=== PATIENT | female | born 1990 | race American Indian/Alaskan Native ===

== ENCOUNTER 2020-07-15 12:03 | Observation (INO) | payer MEDICAID ==
[2020-07-15] MEDS ORDERED: ONDANSETRON 4 MG/2 ML INJ IV PRN (13:40)
[2020-07-15] MEDS ORDERED: ACETAMINOPHEN 325 MG TAB PO PRN (13:40)
[2020-07-15] MEDS ORDERED: DOCUSATE SODIUM 100 MG CAP PO PRN (13:40)
[2020-07-15] MEDS ORDERED: DEXTROSE 50% IN WATER (25GM) 50 ML SYRINGE IV PRN (13:47)
[2020-07-15] MEDS ORDERED: LACTATED RINGERS 1,000 ML IV SCH (14:00)
[2020-07-15 15:28] LABS: Eosinophils # (Auto) 0.1 K/mm3 (0.0-0.4); Eosinophils % (Auto) 0.8 % (0.0-4.3); Hematocrit 33.5 % (30.3-42.9); Hemoglobin 10.8 gm/dl (10.1-14.3); Lymphocytes # (Auto) 2.1 K/mm3 (1.2-5.4); Lymphocytes % (Auto) 22.9 % (13.4-35.0); Mean Corpuscular HGB Conc 32 % (30-34); Mean Corpuscular Volume 80 fl (79-97); Monocytes # (Auto) 0.8 K/mm3 (0.0-0.8); Monocytes % (Auto) 8.9 % (0.0-7.3); Platelet Count 252 K/mm3 (140-440); Red Blood Count 4.19 M/mm3 (3.65-5.03); Red Cell Distribution Width 15.5 % (13.2-15.2)
[2020-07-15 15:35] LABS: Alanine Aminotransferase 69 units/L (7-56); Albumin 2.9 g/dL (3.9-5); Blood Urea Nitrogen 10 mg/dL (7-17); Calcium 9.2 mg/dL (8.4-10.2); Hemolysis Index 3; Uric Acid 3.8 mg/dL (3.5-7.6)
[2020-07-15 15:37] LABS: BUN/Creatinine Ratio 20
[2020-07-15] MEDS: BETAMET ACET/BETAMET NA PH 6 MG/ML INJ 5 ML MDV IM SCH (15:52)
[2020-07-15] MEDS: PRENATAL VIT27-FE FUMARATE-FOLIC ACID VIT TAB PO SCH (15:52)
--- NOTE | 2020-07-15 15:59 | Ultrasound Report ---
Biophysical profile Ultrasound HISTORY: elevated BP. TECHNIQUE: Grayscale and color imaging performed. COMPARISON: None FINDINGS: Fetus received a score of 2 out of 2 for breathing, movement, posture/tone, and MARC. Total score was 8 out of 8. Heart rate was 111 bpm. Cephalic presentation IMPRESSION: Normal biophysical profile. Signer Name: Kyler Navas MD Signed: 07/15/2020 3:55 PM Workstation Name: [id number]
[2020-07-15] MEDS ORDERED: INSULIN LISPRO 100 UNIT/ML VIAL 3 mL SUB-Q SCH (16:30)
--- NOTE | 2020-07-15 16:33 | History and Physical Report ---
History of Present Illness Date of examination: 07/15/20 Date of admission: 07/15/20 13:40 Chief complaint: Sent from [facility] for elevated BP History of present illness: Pt is a 30 yo primip at 36w1d EGA who presents for labs and monitoring ordered by [facility] due to elevated BP. She reports positive movement and denies LOF, vaginal bleeding, contractions, headache, scotomata, or face/hand swelling. She has had one visit with [facility], on 07/05. Her course has been complicated by gestational diabetes, insulin-controlled. Past History Past Medical History: no pertinent history - Obstetrical History Expected Date of Delivery: 08/11/20 Actual Gestation: 36 Week(s) 1 Day(s) : 1 Para: 0 Number of Living Children: 0 Medications and Allergies Allergies Allergy/AdvReac Type Severity Reaction Status Date / Time No Known Allergies Allergy Verified 08/10/16 02:24 Home Medications Medication Instructions Recorded Confirmed Last Taken Type Aspirin BABY CHEW TAB 81 mg PO DAILY 07/15/20 07/15/20 07/14/20 History Novolin N 40 units SQ DAILY 07/15/20 07/15/20 07/15/20 History Novolin R 30 units SQ BID 07/15/20 07/15/20 07/15/20 History Vitamin 1 tab PO DAILY 07/15/20 07/15/20 1 Day Ago History ~07/14/20 Active Meds: Active Medications Acetaminophen (Tylenol) 650 mg PO Q4H PRN PRN Reason: Pain MILD(1-3)/Fever >100.5/BOBO Betamethasone Acet/Betameth SodPhos (Celestone Soluspan) 12 mg IM Q24H BJ Stop: 07/16/20 14:01 Last Admin: 07/15/20 15:52 Dose: 12 mg Documented by: Dextrose (D50w (25gm) Syringe) 50 ml IV Q30MIN PRN; Protocol PRN Reason: Hypoglycemia Docusate Sodium (Colace) 100 mg PO Q12H PRN PRN Reason: Constipation Insulin Human Regular (Humulin R) 0 unit SUB-Q ACHS BJ; Protocol Multivitamins/Iron/Calcium ( Vitamin) 1 each PO QDAY BJ Last Admin: 07/15/20 15:52 Dose: 1 each Documented by: Ondansetron HCl (Zofran) 4 mg IV Q6H PRN PRN Reason: Nausea And Vomiting Review of Systems All systems: negative Eyes: no blurred vision Ears, nose, mouth and throat: no headache Cardiovascular: no chest pain, no edema Genitourinary: no vaginal bleeding, no leakage of fluid, no contractions - Vital Signs Vital signs: Vital Signs Pulse BP 94 H 144/78 07/15/20 13:02 07/15/20 13:02 Temp Pulse Resp BP Pulse Ox 98.4 F 85 18 137/67 99 07/15/20 15:08 07/15/20 16:30 07/15/20 15:08 07/15/20 16:30 07/15/20 15:08 - Physical Exam Lungs: Positive: Normal air movement Abdomen: Positive: soft Uterus: Positive: enlarged (gravid, cephalic) - Obstetrical FHR: category 1 Results Result Diagrams: 07/15/20 15:00 07/15/20 15:00 Abnormal lab results 07/15/20 07/15/20 Range/Units 15:00 15:00 MCH 26 L (28-32) pg RDW 15.5 H (13.2-15.2) % [place] % (Auto) 8.9 H (0.0-7.3) % Carbon Dioxide 21 L (22-30) mmol/L Creatinine 0.5 L (0.6-1.2) mg/dL ALT 69 H (7-56) units/L Alkaline Phosphatase 147 H (35-129) units/L Albumin 2.9 L (3.9-5) g/dL All other labs normal. Assessment and Plan A: 30 yo at 36w1d EGA Gestational hypertension. Rule out preeclampsia. Gestational diabetes, insulin-dependent P: PIH labs, 24 hour urine collection Sliding scale insulin Betamethasone x2 doses BPP BP monitoring, continuous EFM
[2020-07-15] MEDS: INSULIN REGULAR, HUMAN 100 UNIT/ML 3ML VIAL SUB-Q SCH (22:23)
[2020-07-16] MEDS: INSULIN REGULAR, HUMAN 100 UNIT/ML 3ML VIAL SUB-Q SCH ×4 (07:14→19:55)
[2020-07-16] MEDS: PRENATAL VIT27-FE FUMARATE-FOLIC ACID VIT TAB PO SCH (09:47)
--- NOTE | 2020-07-16 12:00 | Progress Note ---
Assessment and Plan A: IUP at 36w2d s/p betamethasone x 1, second dose due today; BPP 06/0307/15/20 Gestational Hypertension, rule out preeclampsia, undergoing 24 hour urine collection to be complete at 2230 pm Insulin-dependent Diabetes Mellitus P: Continue current management Subjective - Subjective Date of service: 07/16/20 Principal diagnosis: IUP at 36w2d, Gestational HTN, IDDM, Morbid Obesity Interval history: Pt without complaints. No headache, blurry vision, RUQ pain, scotomata. Patient reports: movement normal, no new complaints, no loss of fluid, no vaginal bleeding, no contractions Objective - Vital Signs Vital Signs: Vital Signs - 12hr 07/16/20 07/16/20 07/16/20 00:00 00:30 01:00 Temperature Pulse Rate 75 74 76 Blood Pressure 119/65 120/56 126/60 O2 Sat by Pulse Oximetry 07/16/20 07/16/20 07/16/20 01:30 02:30 03:00 Temperature Pulse Rate 73 71 73 Blood Pressure 126/60 109/53 115/54 O2 Sat by Pulse Oximetry 07/16/20 07/16/20 07/16/20 03:30 03:56 04:00 Temperature Pulse Rate 72 75 79 Blood Pressure 124/58 124/67 O2 Sat by Pulse 99 Oximetry 07/16/20 07/16/20 07/16/20 04:31 05:32 06:32 Temperature Pulse Rate 76 90 91 H Blood Pressure 128/71 136/79 118/64 O2 Sat by Pulse Oximetry 07/16/20 07/16/20 07/16/20 07:32 07:55 08:32 Temperature 98.5 F Pulse Rate 82 86 Blood Pressure 115/57 135/72 O2 Sat by Pulse Oximetry 07/16/20 07/16/20 07/16/20 09:11 09:31 10:31 Temperature Pulse Rate 100 H 89 84 Blood Pressure 129/85 125/79 127/71 O2 Sat by Pulse Oximetry 07/16/20 11:32 Temperature Pulse Rate 90 Blood Pressure 135/78 O2 Sat by Pulse Oximetry - Exam Breasts: deferred Abdomen: Present: soft (obese, gravid ) Uterus: Present: normal (gravid ) FHR: auscultation normal Uterine Contraction Monitor Mode: External Uterine Contraction Pattern: Absent Uterine Tone Measurement Phase: Resting Uterine Contraction Intensity: Moderate Extremities: edema (trace ) - Labs Labs: Abnormal Labs 07/15/20 07/15/20 07/15/20 15:00 15:00 21:47 MCH 26 L RDW 15.5 H [place] % (Auto) 8.9 H Carbon Dioxide 21 L Creatinine 0.5 L POC Glucose 201 H ALT 69 H Alkaline Phosphatase 147 H Albumin 2.9 L 07/16/20 07/16/20 07:03 10:51 MCH RDW [place] % (Auto) Carbon Dioxide Creatinine POC Glucose 135 H 125 H ALT Alkaline Phosphatase Albumin Laboratory Results - last 24 hr 07/15/20 07/15/20 07/15/20 15:00 15:00 19:50 WBC 9.3 RBC 4.19 Hgb 10.8 Hct 33.5 MCV 80 MCH 26 L MCHC 32 RDW 15.5 H Plt Count 252 Lymph % (Auto) 22.9 [place] % (Auto) 8.9 H Eos % (Auto) 0.8 Baso % (Auto) Clinical Leader Lymph # 2.1 [place] # 0.8 Eos # 0.1 Baso # 0.0 Seg Neutrophils % 67.0 Seg Neutrophils # 6.2 Sodium 138 Potassium 3.6 Chloride 104.3 Carbon Dioxide 21 L Anion Gap 16 BUN 10 Creatinine 0.5 L Estimated GFR > 60 BUN/Creatinine Ratio 20 Glucose 93 POC Glucose Uric Acid 3.8 Calcium 9.2 Total Bilirubin 0.50 AST 40 ALT 69 H Alkaline Phosphatase 147 H Total Protein 6.5 Albumin 2.9 L Albumin/Globulin Ratio 0.8 Blood Type B POSITIVE Antibody Screen Negative 07/15/20 07/16/20 07/16/20 21:47 07:03 10:51 WBC RBC Hgb Hct MCV MCH MCHC RDW Plt Count Lymph % (Auto) [place] % (Auto) Eos % (Auto) Baso % (Auto) Lymph # [place] # Eos # Baso # Seg Neutrophils % Seg Neutrophils # Sodium Potassium Chloride Carbon Dioxide Anion Gap BUN Creatinine Estimated GFR BUN/Creatinine Ratio Glucose POC Glucose 201 H 135 H 125 H Uric Acid Calcium Total Bilirubin AST ALT Alkaline Phosphatase Total Protein Albumin Albumin/Globulin Ratio Blood Type Antibody Screen
[2020-07-16] MEDS: BETAMET ACET/BETAMET NA PH 6 MG/ML INJ 5 ML MDV IM SCH (16:55)
[2020-07-16] MEDS ORDERED: INSULIN REGULAR, HUMAN 100 UNIT/ML 3ML VIAL SUB-Q SCH (17:00)
[2020-07-16 19:28] LABS: Bacteria,Urine 2+ /HPF (Negative); Bilirubin,Urine NEG (Negative); Blood,Urine NEG (Negative); Color,Urine Yellow (Yellow); Mucus,Urine FEW /HPF; Urobilinogen,Urine < 2.0 mg/dL (<2.0)
[2020-07-16] MEDS ORDERED: INSULIN NPH, HUMAN 100 UNIT/1 ML SUB-Q SCH (22:00)
[2020-07-16 22:26] VITALS: BP 146/83
--- NOTE | 2020-07-17 00:24 | Event Note ---
Date: 07/17/20 On-call MD called because pt feels her blood pressure is fine and does not want to remain in the hospital. 24 hour urine has been collected but has not been analyzed yet. Pt will follow up in the office this week.
--- NOTE | 2020-07-17 00:29 | Discharge Summary ---
Providers - Providers Date of Admission: 07/15/20 13:40 Date of discharge: 07/17/20 Attending physician: MARIE FOX Primary care physician: MARIE FOX Hospitalization Reason for admission: other (elevated blood pressure, insulin dependent diabetes mellitus ) Procedure details: Serial blood pressures Two doses of betamethasone Hospital course: Pt was directly admitted at the direction of [facility] for gestational hypertension and evaluation of preeclampsia. While hospitalized, the patient received two doses of betamethasone and serial blood pressures. As soon as her 24 hr urine was collected, she became tired of being in the hospital and left against medical advice prior to her 24 hr urine protein resulting. She has been instructed to keep her appts with [facility] and [facility]. Condition at discharge: Stable Disposition: [id number] LEFT AGAINST MED ADVICE - Discharge Diagnoses (1) Diabetes mellitus affecting Status: Acute Qualifiers: Trimester: third trimester Qualified Code(s): O24.913 - Unspecified diabetes mellitus in , third trimester (2) Gestational hypertension Status: Acute Qualifiers: Trimester: third trimester Qualified Code(s): O13.3 - Gestational [-induced] hypertension without significant proteinuria, third trimester (3) Morbid obesity Status: Acute (4) Status: Acute Qualifiers: Weeks of gestation: 36 weeks Qualified Code(s): Z3A.36 - 36 weeks gestation of Plan - Provider Discharge Summary Diet: routine Instructions: routine Additional instructions: [] Smoking cessation referral if applicable(refer to patient education folder for contact #) [] Refer to [facility] Call your doctor immediately for: * Fever > 100.5 * Heavy vaginal bleeding ( >1 pad per hour) * Severe persistent headache * Shortness of breath * Reddened, hot, painful area to leg or breast * Drainage or odor from incision. * Keep incision clean and dry at all times and follow doctor's instructions regarding bathing/showering - Follow up plan Follow up: [facility] [Advanced Practice Nurse] - 3 Days (Please call to schedule an appt )
[2020-07-17] MEDS ORDERED: INSULIN REGULAR, HUMAN 100 UNIT/ML 3ML VIAL SUB-Q SCH (08:00)
[2020-07-17] MEDS ORDERED: INSULIN NPH, HUMAN 100 UNIT/1 ML SUB-Q SCH (08:00)
== END 2020-07-16 23:16 | disposition left against medical advice (07) ==
LOC: TRG 12:03 → APU 12:06 → TRG 13:40 → LD 15:29
PROVIDERS: ADMIT Obstetrics & Gynecology; ATTEND Obstetrics & Gynecology
DX: O13.3 Gestational [pregnancy-induced] hypertension without significant proteinuria, third trimester (principal); Z20.828 Contact with and (suspected) exposure to other viral communicable diseases; O24.414 Gestational diabetes mellitus in pregnancy, insulin controlled; O99.213 Obesity complicating pregnancy, third trimester; E66.01 Morbid (severe) obesity due to excess calories; Z79.82 Long term (current) use of aspirin; Z3A.36 36 weeks gestation of pregnancy; Z68.43 Body mass index [BMI] 50.0-59.9, adult
CPT/HCPCS: 36415; 76819; 80053; 81001; 82565; 82962; 84156; 84550; 85025; 86850; 86900; 86901; 96372; G0378; U0003; J0702; J1815

== ENCOUNTER 2020-07-21 13:24 | Outpatient (CLI) | payer MEDICAID ==
[2020-07-21] MEDS ORDERED: LACTATED RINGERS 1,000 ML IV SCH (14:00)
[2020-07-21 14:16] LABS: Hematocrit 34.3 % (30.3-42.9); Mean Corpuscular HGB Conc 32 % (30-34); Mean Corpuscular Volume 80 fl (79-97); Platelet Count 248 K/mm3 (140-440); Red Blood Count 4.31 M/mm3 (3.65-5.03); Red Cell Distribution Width 15.7 % (13.2-15.2)
[2020-07-21 14:23] LABS: Bacteria,Urine 1+ /HPF (Negative); Bilirubin,Urine NEG (Negative); Blood,Urine NEG (Negative); Color,Urine Yellow (Yellow); Mucus,Urine FEW /HPF
[2020-07-21 14:36] LABS: Alanine Aminotransferase 79 units/L (7-56); Uric Acid 3.8 mg/dL (3.5-7.6)
[2020-07-21 14:57] VITALS: BP 126/68
== END 2020-07-21 16:00 | disposition home or self-care (01) ==
LOC: TRG 13:24 → APU 13:25 → TRG 16:00
PROVIDERS: ATTEND Obstetrics & Gynecology
DX: O13.3 Gestational [pregnancy-induced] hypertension without significant proteinuria, third trimester (principal); Z3A.37 37 weeks gestation of pregnancy
CPT/HCPCS: 36415; 59025; 81001; 82565; 82962; 83615; 84450; 84460; 84550; 85027; 87086

== ENCOUNTER 2020-08-23 13:42 | Emergency (ER) | payer MEDICAID ==
[2020-08-23 14:01] VITALS: BP 186/91
--- NOTE | 2020-08-23 16:48 | XRay Report ---
CHEST 2 VIEWS INDICATION / CLINICAL INFORMATION: chest pain. COMPARISON: None available. FINDINGS: SUPPORT DEVICES: None. HEART / MEDIASTINUM: No significant abnormality. LUNGS / PLEURA: No significant pulmonary or pleural abnormality. No pneumothorax. ADDITIONAL FINDINGS: There are multiple metallic projectile fragments in the left anterior chest wall . IMPRESSION: 1. No acute findings. Signer Name: Orlando Jones MD Signed: 08/23/2020 4:44 PM Workstation Name: [id number]
[2020-08-23 17:17] LABS: Basophils # (Auto) 0.1 K/mm3 (0.0-0.1); Basophils % (Auto) 0.6 % (0.0-1.8); Lymphocytes # (Auto) 1.1 K/mm3 (1.2-5.4); Lymphocytes % (Auto) 8.6 % (13.4-35.0); Mean Corpuscular HGB Conc 31 % (30-34); Mean Corpuscular Volume 80 fl (79-97); Monocytes # (Auto) 0.2 K/mm3 (0.0-0.8); Monocytes % (Auto) 1.8 % (0.0-7.3); Platelet Count 313 K/mm3 (140-440); Red Blood Count 5.07 M/mm3 (3.65-5.03); Red Cell Distribution Width 16.4 % (13.2-15.2)
[2020-08-23 17:18] LABS: Hematocrit 40.4 % (30.3-42.9); Hemoglobin 12.3 gm/dl (10.1-14.3)
[2020-08-23 17:34] LABS: Alanine Aminotransferase 21 units/L (7-56); Albumin 4.1 g/dL (3.9-5); BUN/Creatinine Ratio 10; Blood Urea Nitrogen 7 mg/dL (7-17); Calcium 9.9 mg/dL (8.4-10.2); Hemolysis Index 20
== END 2020-08-23 17:00 | disposition home or self-care (01) ==
LOC: ED 13:42
DX: R07.89 Other chest pain (principal); E11.9 Type 2 diabetes mellitus without complications; Z53.21 Procedure and treatment not carried out due to patient leaving prior to being seen by health care provider
CPT/HCPCS: 36415; 71046; 80053; 82962; 83690; 85025; 93005

== ENCOUNTER 2021-10-10 06:48 | Emergency (ER) | payer MEDICAID ==
[2021-10-10 06:53] VITALS: BP 172/104
[2021-10-10] MEDS ORDERED: LIDOCAINE VISCOUS 2% 15 ML ORAL LIQD PO ONE (07:39)
[2021-10-10] MEDS ORDERED: ALUM-MAG HYDROXIDE-SIMETHICONE 200-200-20MG/5ML ORAL LIQD 30 ML PO ONE (07:39)
[2021-10-10] MEDS ORDERED: cloNIDine 0.2 MG TAB PO ONE (07:41)
--- NOTE | 2021-10-10 07:44 | Emergency Department Report ---
HPI - General Chief Complaint: Chest Pain Time Seen by Provider: 10/10/21 07:28 - HPI HPI: Room 29 The patient is a 31-year-old female presenting with chief complaint of chest pain. Patient states for the past 3 days she has a constant substernal chest pain described as burning/heaviness/tightness. Patient states an [id number]-gvr-[id number] nighttime pain medication (acetaminophen with Benadryl) alleviates the pain but it always returns. Patient missed 1 episode of nausea vomiting preceding the chest pain. Patient denies shortness of breath or diaphoresis. Patient denies history of fever ED Past Medical Hx - Past Medical History Hx Hypertension: Yes (-induced hypertension) Hx Diabetes: Yes (Gestational diabetes) Additional medical history: Obesity - Surgical History Past Surgical History?: No - Family History Family history: no significant - Social History Smoking Status: Never Smoker Substance Use Type: None (Denies illicit drug use), Alcohol (Occasional) - Medications Home Medications: Home Medications Medication Instructions Recorded Confirmed Last Taken Type Aspirin BABY CHEW TAB 81 mg PO DAILY 07/15/20 07/28/20 07/14/20 History Novolin N 40 units SQ DAILY 07/15/20 07/28/20 07/15/20 History Novolin R 30 units SQ BID 07/15/20 07/28/20 07/15/20 History Vitamin 1 tab PO DAILY 07/15/20 07/28/20 1 Day Ago History ~07/14/20 Ferrous Sulfate [Feosol 325 MG tab] 325 mg PO BID #60 tablet 07/25/20 Unknown Rx Ibuprofen [Motrin] 800 mg PO Q8HR PRN #30 tablet 07/25/20 Unknown Rx oxyCODONE /ACETAMINOPHEN [Percocet 1 tab PO Q6HR PRN #30 tablet 07/25/20 Unknown Rx 5/325] Clindamycin [Clindamycin CAP] 300 mg PO Q6H #28 capsule 07/28/20 Unknown Rx labetaloL [Labetalol 200mg TAB] 200 mg PO BID #60 tablet 07/28/20 Unknown Rx Famotidine [Pepcid] 20 mg PO BID #30 tablet 10/10/21 Unknown Rx amLODIPine 5 mg PO DAILY #90 tab 10/10/21 Unknown Rx ED Review of Systems ROS: Stated complaint: CHEST PAIN Other details as noted in HPI Constitutional: denies: diaphoresis, fever Eyes: denies: eye pain ENT: denies: throat pain Respiratory: denies: shortness of breath Cardiovascular: chest pain Endocrine: no symptoms reported Gastrointestinal: nausea, vomiting Genitourinary: denies: dysuria Musculoskeletal: denies: back pain Neurological: denies: headache Physical Exam - Physical Exam Vital Signs: Vital Signs 10/10/21 06:49 Temperature 98.3 F Pulse Rate 85 Respiratory 18 Rate Blood Pressure 172/104 [Right] O2 Sat by Pulse 100 Oximetry Physical Exam: GENERAL: The patient is well-developed well-nourished female sitting in chair not appearing to be in acute distress. [] HEENT: Normocephalic. Atraumatic. Extraocular motions are intact. Patient has moist mucous membranes. NECK: Supple. Trachea midline CHEST/LUNGS: Clear to auscultation. There is no respiratory distress noted. HEART/CARDIOVASCULAR: Regular. There is no tachycardia. There is no gallop rub or murmur. ABDOMEN: Abdomen is soft, nontender. Patient has normal bowel sounds. There is no abdominal distention. SKIN: There is no rash. There is no edema. There is no diaphoresis. NEURO: The patient is awake, alert, and oriented. The patient is cooperative. The patient has no focal neurologic deficits. The patient has normal speech. GCS MUSCULOSKELETAL: There is no evidence of acute injury. ED Course Vital Signs 10/10/21 06:49 Temperature 98.3 F Pulse Rate 85 Respiratory 18 Rate Blood Pressure 172/104 [Right] O2 Sat by Pulse 100 Oximetry ED Medical Decision Making - Lab Data Result diagrams: 10/10/21 08:17 10/10/21 08:17 - EKG Data -: EKG Interpreted by Me EKG shows normal: sinus rhythm Rate: normal - EKG Data When compared to previous EKG there are: no significant change Interpretation: unchanged when compared t (08/23/2020) - Radiology Data Radiology results: report reviewed (Chest x-ray), image reviewed (Chest x-ray) interpreted by me: Chest x-ray-no definite focal infiltrates, no pneumothorax [facility] [address] [place] [address] XRay Report Signed Patient: VAHID SMITH MR# : [id number] : 1990 Acct:[id number] Age/Sex: 31 / F ADM Date: 10/10/21 Loc: ED Attending Dr: Ordering Physician: ELLIS WALKER MD Date of Service: 10/10/21 Proc edure(s): XR chest routine 2V Accession Number(s): [id number] cc: ELLIS WALKER MD Fluoro Time In Minutes: CHEST 2 VIEWS INDICATION / CLINICAL INFORMATION: chest pain. COMPARISON: 08/23/2020 FINDINGS: SUPPORT DEVICES: None. HEART / MEDIASTINUM: No significant abnormality. LUNGS / PLEURA: No significant pulmonary or pleural abnormality. No pneumothorax. ADDITIONAL FINDINGS: No significant additional findings. IMPRESSION: 1. No acute findings. Signer Name: Orlando Jones MD Signed: 10/10/2021 9:42 AM Workstation Name: [employer] Transcribed By: TIERNEY Dictated By: Orlando Jones MD Electronically Authenticated By: Orlando Jones MD Signed Date/Time: 10/10/21941 DD/ 1 TD/TT: Print Cancel - Differential Diagnosis GERD, pericarditis, hypertensive urgency, ACS, PE Critical care attestation.: If time is entered above; I have spent that time in minutes in the direct care of this critically ill patient, excluding procedure time. ED Disposition Clinical Impression: Chest pain, Hypertension Disposition: 01 HOME / SELF CARE / HOMELESS Is pt being admited?: No Does the pt Need Aspirin: No Condition: Stable Instructions: Nonspecific Chest Pain, Adult, Hypertension (ED), Hypertension, Adult, Qjka-eu-Dfow Additional Instructions: Return to the emergency department should you develop worsening symptoms, inability to tolerate food or liquids, high fever or any other concerns Prescriptions: amLODIPine 5 mg PO DAILY #90 tab Famotidine [Pepcid] 20 mg PO BID #30 tablet Referrals: PRIMARY CAREMD [Primary Care Provider] - 3-5 Days LIVE MCKEON MD [Staff Physician] - 3-5 Days (Dr. Mckeon is an Internal medicine physician. Please follow-up with him to be established as a patient) Time of Disposition: 10:27 Heart Score - HEART Score History: Slightly suspicious EKG: Non-specific Age: < 45 Risk factors: No known risk factors Troponin: < normal limit HEART Score: 1 - EKG Read Time Time EKG Completed: 06:57 EKG Read Time: 07:01
[2021-10-10 08:35] LABS: Basophils % (Auto) 0.3 % (0.0-1.8); Eosinophils # (Auto) 0.2 K/mm3 (0.0-0.4); Eosinophils % (Auto) 1.9 % (0.0-4.3); Hematocrit 41.2 % (30.3-42.9); Hemoglobin 13.1 gm/dl (10.1-14.3); Lymphocytes # (Auto) 2.8 K/mm3 (1.2-5.4); Lymphocytes % (Auto) 30.8 % (13.4-35.0); Mean Corpuscular HGB Conc 32 % (30-34); Mean Corpuscular Volume 83 fl (79-97); Monocytes # (Auto) 0.6 K/mm3 (0.0-0.8); Monocytes % (Auto) 6.4 % (0.0-7.3); Platelet Count 312 K/mm3 (140-440); Red Blood Count 4.99 M/mm3 (3.65-5.03); Red Cell Distribution Width 14.6 % (13.2-15.2)
[2021-10-10 09:00] LABS: Creatine Kinase MB < 1.0 ng/mL (0.0-4.0)
[2021-10-10 09:01] LABS: Blood Urea Nitrogen 11 mg/dL (7-17); Calcium 9.8 mg/dL (8.4-10.2); Hemolysis Index 10
[2021-10-10 09:08] LABS: BUN/Creatinine Ratio 18
--- NOTE | 2021-10-10 09:47 | XRay Report ---
CHEST 2 VIEWS INDICATION / CLINICAL INFORMATION: chest pain. COMPARISON: 08/23/2020 FINDINGS: SUPPORT DEVICES: None. HEART / MEDIASTINUM: No significant abnormality. LUNGS / PLEURA: No significant pulmonary or pleural abnormality. No pneumothorax. ADDITIONAL FINDINGS: No significant additional findings. IMPRESSION: 1. No acute findings. Signer Name: Orlando Jones MD Signed: 10/10/2021 9:42 AM Workstation Name: [email or web address]
--- NOTE | 2021-10-10 12:27 | Electrocardiograph Report ---
[facility] Test Date: 2021-10-10 Test Time: 06:57:04 Pat Name: VAHID SMITH Department: Room: Gender: F Waiver Analyst: CAS : 1990 Requested By: ELLIS WALKER Order Number: [id number] Reading MD: Braulio Wilder Measurements Intervals [place] Rate: 71 P: 26 NE: 149 QRS: -9 QRSD: 98 T: -3 QT: 410 QTc: 447 Interpretive Statements Sinus rhythm Probable left ventricular hypertrophy nonspecific st-t No previous ECG available for comparison Electronically Signed On 10-10-2021 12:26:36 EST by Braulio Wilder
== END 2021-10-10 10:40 | disposition home or self-care (01) ==
LOC: ED 06:48
DX: R07.9 Chest pain, unspecified (principal); R11.2 Nausea with vomiting, unspecified
CPT/HCPCS: 36415; 71046; 80048; 82550; 82553; 84484; 84703; 85025; 85379; 93005; 99284